=== PATIENT | male | born 1960 | race Caucasian/White ===

== ENCOUNTER 2020-07-14 15:02 | Outpatient (CLI) | payer OTHER | END 2020-07-14 15:03 | disposition home or self-care (01) | LOC: NAV RAD 15:02 | PROVIDERS: ATTEND Family Medicine | DX: M17.9 Osteoarthritis of knee, unspecified (principal); M17.11 Unilateral primary osteoarthritis, right knee ==

== ENCOUNTER 2024-12-17 10:40 | Outpatient (CLI) | payer MEDICARE | END 2024-12-17 10:41 | disposition home or self-care (01) | LOC: NAV RAD 10:40 | PROVIDERS: ATTEND Family Medicine | DX: M54.41 Lumbago with sciatica, right side (principal); G89.29 Other chronic pain; M47.816 Spondylosis without myelopathy or radiculopathy, lumbar region | CPT/HCPCS: 72100 ==